=== PATIENT | male | born 1995 | race Caucasian/White ===

== ENCOUNTER → 2024-06-22 | Outpatient (CLI) | payer OTHER ==
[~2024-06-22] MED LIST: E-Z-GAS II EFFERVESCENT PACKET (SODIUM BICARB./CITRIC ACID/SIMETHICONE) As Ordered ONE; E-Z-HD 98% w/w 340GM SUSP BTL As Ordered ONE; E-Z-PAQUE 96% w/w SUSP 176GM BTL As Ordered ONE
== END ==
LOC: M RAD 08:34
PROVIDERS: ATTEND Physician Assistant Medical
DX: R13.10 Dysphagia, unspecified (principal); K21.9 Gastro-esophageal reflux disease without esophagitis

== ENCOUNTER 2024-07-22 10:52 | Day surgery (SDC) | payer OTHER ==
[~2024-07-22] VITALS: Ht 175.3 cm; Wt 77.9 kg
[~2024-07-22 10:52] MED LIST changes: -E-Z-GAS II EFFERVESCENT PACKET (SODIUM BICARB./CITRIC ACID/SIMETHICONE) As Ordered ONE; -E-Z-HD 98% w/w 340GM SUSP BTL As Ordered ONE; -E-Z-PAQUE 96% w/w SUSP 176GM BTL As Ordered ONE; +LIDOCAINE 2% 100MG/5ML SDV (FOR ANES.) As Ordered ONE; +PANT40TA29 PO; +ZOLO100T PO; +propofoL 200 MG/20 ML VIAL As Ordered ONE
[2024-07-22 12:46] VITALS: TEMP 98.1
[2024-07-22 13:10] VITALS: BP 112/66; O2SAT 96
== END 2024-07-22 13:21 | disposition home or self-care (01) ==
LOC: M OPP 10:52 → EDUNIT# 13:30
PROVIDERS: ATTEND Internal Medicine Gastroenterology
DX: R12 Heartburn (principal); R13.10 Dysphagia, unspecified; K22.2 Esophageal obstruction; Z79.899 Other long term (current) drug therapy; Z87.891 Personal history of nicotine dependence; G47.30 Sleep apnea, unspecified